=== PATIENT | female | born 1985 | race African-American/Black ===

== ENCOUNTER 2017-11-21 10:13 | Emergency (ER) | payer OTHER ==
[~2017-11-21] VITALS: Ht 175.3 cm; Wt 57.0 kg
[2017-11-21] MEDS ORDERED: normal saline 1000ml 1,000 ML IV ONE (10:22)
[2017-11-21 10:42] LABS: BASOPHILS % (AUTO) 0.2 % (0-1); EOSINOPHILS # (AUTO) 0.1 X10'3 (0-0.9); EOSINOPHILS % (AUTO) 1.1 % (0-6); HEMATOCRIT 29.9 % (35.0-45.0); HEMOGLOBIN 9.5 g/dl (12.0-16.0); LYMPHOCYTES # (AUTO) 1.9 X10'3 (1.1-4.8); LYMPHOCYTES % (AUTO) 28.3 % (21-51); MEAN CORPUSCULAR HEMOGLOBIN 25.3 PG (27.0-31.0); MEAN CORPUSCULAR HGB CONC 31.9 % (33.0-36.5); MEAN CORPUSCULAR VOLUME 79.4 FL (78-98); MEAN PLATELET VOLUME 7.2 FL (7.4-10.4); MONOCYTES # (AUTO) 0.7 X10'3 (0-0.9); NEUTROPHILS % (AUTO) 60.4 % (42-75); PLATELET COUNT 327 X10'3 (140-440); RED BLOOD COUNT 3.76 X10'6 (4.20-5.60); RED CELL DISTRIBUTION WIDTH 16.8 % (11.5-14.5); WHITE BLOOD COUNT 6.7 X10'3 (4.5-11.0)
[2017-11-21 10:51] LABS: INR 1.1 INR; PARTIAL THROMBOPLASTIN TIME 24 SECONDS (22-32); PROTHROMBIN TIME 11.4 SECONDS (9.0-12.0)
[2017-11-21 11:07] LABS: ALANINE AMINOTRANSFERASE 18 U/L (12-78); ALBUMIN/GLOBULIN RATIO 0.9 (1.1-1.5); ALKALINE PHOSPHATASE 55 IU/L (46-116); ANION GAP 25 (8-16); ASPARTATE AMINO TRANSFERASE 17 U/L (10-37); BILIRUBIN,TOTAL 0.6 MG/DL (0.1-1.0); BLOOD UREA NITROGEN 5 MG/DL (7-18); BUN/CREATININE RATIO 4.9 (6.6-38.0); CALCIUM 8.9 MG/DL (8.5-10.1); CHLORIDE 101 MMOL/L (99-107); CREATININE 1.02 MG/DL (0.40-0.90); ETHANOL < 0.010 GM/DL (0.0-0.010); GLUCOSE 127 MG/DL (70-104); MAGNESIUM 1.7 MG/DL (1.5-2.4); POTASSIUM 3.4 MMOL/L (3.5-5.1); SODIUM 139 MMOL/L (135-145); TOTAL PROTEIN 8.7 G/DL (6.4-8.2); eGFR 63 ML/MIN
[2017-11-21 11:08] LABS: ACETAMINOPHEN < 2.0 UG/ML (10-30); CARBAMAZEPINE (TEGRETOL) < 0.5 UG/ML (4.0-12.0); VALPROATE < 3.0 UG/ML (50-100)
[2017-11-21 11:11] LABS: TOTAL CARBON DIOXIDE 13.5 MMOL/L (24-32)
[2017-11-21] MEDS ORDERED: levetiracetam 250mg tablet PO ONE ×2 (11:15→11:50)
[2017-11-21] MEDS ORDERED: lamoTRIgine 100mg tablet PO ONE (11:15)
[2017-11-21 12:17] VITALS: BP 107/47
== END 2017-11-21 12:44 | disposition home or self-care (01) ==
LOC: ER 10:15
DX: G40.909 Epilepsy, unspecified, not intractable, without status epilepticus (principal)
CPT/HCPCS: 36415; 70450; 71045; 80053; 80156; 80164; 80185; 80320; 80329; 83735; 84443; 84484; 85025; 85610; 85730; 93005; 96360; 99285; J7030

== ENCOUNTER 2018-08-20 11:17 | Emergency (ER) | payer OTHER ==
[~2018-08-20] VITALS: Ht 175.3 cm; Wt 68.2 kg
[2018-08-20] MEDS ORDERED: LEVE500T PO (12:04)
[2018-08-20 12:38] LABS: BASOPHILS % (AUTO) 0.3 % (0-1); EOSINOPHILS % (AUTO) 0.1 % (0-6); HEMATOCRIT 33.7 % (35.0-45.0); HEMOGLOBIN 11.5 g/dl (12.0-16.0); LYMPHOCYTES # (AUTO) 0.4 X10'3 (1.1-4.8); LYMPHOCYTES % (AUTO) 5.4 % (21-51); MEAN CORPUSCULAR VOLUME 88.2 FL (78-98); MEAN PLATELET VOLUME 7.8 FL (7.4-10.4); MONOCYTES # (AUTO) 0.5 X10'3 (0-0.9); MONOCYTES % (AUTO) 7.8 % (2-12); NEUTROPHILS # (AUTO) 5.6 X10'3 (1.8-7.7); NEUTROPHILS % (AUTO) 86.4 % (42-75); PLATELET COUNT 295 X10'3 (140-440); RED BLOOD COUNT 3.82 X10'6 (4.20-5.60); RED CELL DISTRIBUTION WIDTH 14.6 % (11.5-14.5); WHITE BLOOD COUNT 6.5 X10'3 (4.5-11.0)
[2018-08-20] MEDS ORDERED: normal saline 1000ML IV soln IVB ONE (12:45)
[2018-08-20] MEDS ORDERED: LORazepam 2 mg/ml vial IV ONE (12:45)
[2018-08-20 12:48] LABS: ALANINE AMINOTRANSFERASE 15 U/L (12-78); ALBUMIN 4.2 G/DL (3.4-5.0); ALKALINE PHOSPHATASE 60 IU/L (46-116); ANION GAP 11 (8-16); ASPARTATE AMINO TRANSFERASE 16 U/L (10-37); BILIRUBIN,TOTAL 0.3 MG/DL (0.1-1.0); BLOOD UREA NITROGEN 5 MG/DL (7-18); BUN/CREATININE RATIO 7.5 (6.6-38.0); CHLORIDE 102 MMOL/L (99-107); CREATININE 0.67 MG/DL (0.40-0.90); GLUCOSE 89 MG/DL (70-104); POTASSIUM 3.6 MMOL/L (3.5-5.1); SODIUM 137 MMOL/L (135-145); TOTAL CARBON DIOXIDE 23.6 MMOL/L (24-32); TOTAL PROTEIN 8.6 G/DL (6.4-8.2); eGFR > 90 ML/MIN
[2018-08-20] MEDS ORDERED: levetiracetam inj 1,000 MG in normal saline 100ml IV soln 90 ML IV ONE (12:50)
[2018-08-20 14:11] VITALS: BP 119/54
== END 2018-08-20 14:42 | disposition home or self-care (01) ==
LOC: ER 11:17
DX: G40.909 Epilepsy, unspecified, not intractable, without status epilepticus (principal); Z79.899 Other long term (current) drug therapy
CPT/HCPCS: 36415; 80053; 85025; 93005; 96365; 96375; 99284; J1953; J2060; J7030

== ENCOUNTER 2018-10-05 07:35 | Emergency (ER) | payer OTHER ==
[~2018-10-05] VITALS: Ht 175.3 cm; Wt 62.1 kg
[~2018-10-05 07:35] MED LIST: LEVE500T PO
[2018-10-05] MEDS ORDERED: prednisone 10mg tablet PO STA (07:53)
[2018-10-05] MEDS ORDERED: ondansetron/PF 4mg/2ml inj IV ONE (07:55)
[2018-10-05] MEDS ORDERED: morphine 4 MG/ML inj SYRINge IV ONE (07:55)
[2018-10-05] MEDS ORDERED: normal saline 1000ML IV soln IVB ONE ×2 (07:55→09:05)
[2018-10-05 08:15] LABS: BASOPHILS % (AUTO) 0.2 % (0-1); EOSINOPHILS % (AUTO) 0 % (0-6); HEMATOCRIT 45.7 % (35.0-45.0); LYMPHOCYTES % (AUTO) 8.6 % (21-51); MEAN CORPUSCULAR HEMOGLOBIN 28.1 PG (27.0-31.0); MEAN CORPUSCULAR HGB CONC 32.9 % (33.0-36.5); MEAN CORPUSCULAR VOLUME 85.4 FL (78-98); MEAN PLATELET VOLUME 7.3 FL (7.4-10.4); MONOCYTES # (AUTO) 0.3 X10'3 (0-0.9); MONOCYTES % (AUTO) 2.5 % (2-12); NEUTROPHILS # (AUTO) 9.9 X10'3 (1.8-7.7); NEUTROPHILS % (AUTO) 88.7 % (42-75); PLATELET COUNT 434 X10'3 (140-440); RED BLOOD COUNT 5.35 X10'6 (4.20-5.60); RED CELL DISTRIBUTION WIDTH 14.4 % (11.5-14.5); WHITE BLOOD COUNT 11.1 X10'3 (4.5-11.0)
[2018-10-05 08:29] LABS: INR 1.1 INR; PROTHROMBIN TIME 11.3 SECONDS (9.0-12.0)
[2018-10-05 08:30] LABS: ALANINE AMINOTRANSFERASE 17 U/L (12-78); ALBUMIN 4.2 G/DL (3.4-5.0); ALBUMIN/GLOBULIN RATIO 0.7 (1.1-1.5); ALKALINE PHOSPHATASE 84 IU/L (46-116); AMYLASE 73 U/L (25-115); ANION GAP 19 (8-16); ASPARTATE AMINO TRANSFERASE 16 U/L (10-37); BILIRUBIN,TOTAL 0.4 MG/DL (0.1-1.0); BLOOD UREA NITROGEN 22 MG/DL (7-18); CALCIUM 9.7 MG/DL (8.5-10.1); CHLORIDE 91 MMOL/L (99-107); CREATININE 1.16 MG/DL (0.40-0.90); GLUCOSE 135 MG/DL (70-104); LIPASE 182 U/L (73-393); SODIUM 131 MMOL/L (135-145); TOTAL CARBON DIOXIDE 21.2 MMOL/L (24-32); TOTAL PROTEIN 10.2 G/DL (6.4-8.2); eGFR 66 ML/MIN
[2018-10-05 08:34] LABS: POTASSIUM 2.4 MMOL/L (3.5-5.1)
[2018-10-05] MEDS ORDERED: potassium Cl 20 mEq SR tablet PO ONE (08:35)
[2018-10-05] MEDS: potassium 10mEq/100ml NS w/LIDOcaine (10mg/bag) IV SCH ×3 (08:44→10:15)
[2018-10-05] MEDS ORDERED: predniSONE 20 mg tablet PO STA (09:18)
[2018-10-05 10:47] LABS: ALBUMIN 3.8 G/DL (3.4-5.0); ANION GAP 13 (8-16); BLOOD UREA NITROGEN 19 MG/DL (7-18); BUN/CREATININE RATIO 20.2 (6.6-38.0); CALCIUM 8.6 MG/DL (8.5-10.1); CHLORIDE 95 MMOL/L (99-107); CREATININE 0.94 MG/DL (0.40-0.90); GLUCOSE 97 MG/DL (70-104); SODIUM 132 MMOL/L (135-145); TOTAL CARBON DIOXIDE 23.9 MMOL/L (24-32); eGFR 84 ML/MIN
[2018-10-05 10:52] LABS: POTASSIUM 2.5 MMOL/L (3.5-5.1)
[2018-10-05] MEDS ORDERED: POTA10TA19 PO (11:12)
[2018-10-05] MEDS ORDERED: PRED10TA23 PO (11:12)
[2018-10-05 12:56] VITALS: BP 135/85
[2018-10-07] MEDS ORDERED: MESALAMINE PO (12:16)
[2018-10-07] MEDS ORDERED: LAMO100T2 PO (12:16)
[2018-10-07] MEDS ORDERED: PRED10TA23 PO (12:43)
[2018-10-07] MEDS ORDERED: POTA10TA36 PO (12:43)
[2018-10-07] MEDS ORDERED: MESA1.2T PO (12:46)
[2018-10-10] MEDS ORDERED: METR500T PO (13:17)
[2018-10-10] MEDS ORDERED: LEVO500T89 PO (13:17)
[2018-10-10] MEDS ORDERED: HYDR-4383 PO (13:17)
[2018-10-10] MEDS ORDERED: PRED10TA23 PO (13:20)
[2018-10-10] MEDS ORDERED: LACT1CAP26 PO (13:31)
== END 2018-10-05 13:10 | disposition home or self-care (01) ==
LOC: EDBD → ER 07:36
DX: K51.90 Ulcerative colitis, unspecified, without complications (principal); E86.0 Dehydration; E87.6 Hypokalemia; R06.02 Shortness of breath; Z79.899 Other long term (current) drug therapy
CPT/HCPCS: 36415; 80048; 80053; 82150; 83690; 85025; 85610; 96365; 96366; 96375; 99283; J2270; J2405; J3480; J7030; J7512

== ENCOUNTER 2018-10-07 07:24 | Inpatient (IN) | payer MEDICAID, OTHER | END 2018-10-10 19:00 | disposition home or self-care (01) | LOC: ER 07:24 → ED HOLD 12:44 → SUR 3N 19:11 | DX: K51.911 Ulcerative colitis, unspecified with rectal bleeding (principal); D64.9 Anemia, unspecified; E87.6 Hypokalemia ==